=== PATIENT | male | born 1995 | race Two or more races ===

== ENCOUNTER → 2022-01-08 | Emergency (ER) | payer SELFPAY ==
[~2022-01-08] VITALS: Ht 167.6 cm; Wt 78.9 kg
[2022-01-08 03:56] VITALS: BP 135/82
== END | disposition home or self-care (01) ==
LOC: ER 01:06
DX: S90.211A Contusion of right great toe with damage to nail, initial encounter (principal); Z88.1 Allergy status to other antibiotic agents; W22.8XXA Striking against or struck by other objects, initial encounter; Y93.89 Activity, other specified; Y92.89 Other specified places as the place of occurrence of the external cause; Y99.8 Other external cause status
CPT/HCPCS: 73660